=== PATIENT | male | born 1975 | race Caucasian/White ===

== ENCOUNTER 2018-01-20 13:25 | Emergency (ER) | payer MEDICAID ==
[~2018-01-20 13:25] MED LIST: SULFAMETHOX/TMP 800/160 MG 1 TAB PO SCH
[2018-01-20] MEDS ORDERED: SULFAMETHOX/TMP 800/160 MG 1 TAB PO ONE (14:59)
--- NOTE | 2018-01-20 15:02 | EDPHY ---
H & P Stated Complaint: back pain, R arm wound Time Seen by Provider: 01/20/18 14:45 HPI/ROS: Chief complaint: Bug bites History of present illness: This is a 42-year-old male who is currently homeless who presents to the emergency department concerned he has bug bites. He actually has some of the bugs in a container with him. They do appear to be body lice. He reports multiple bites over his entire body. He is most concerned however for his right arm and one of the bites has become very red, swollen and painful. Denies fevers or other associated signs or symptoms. - Personal History Current Tetanus/Diphtheria Vaccine: Unsure Current Tetanus Diphtheria and Acellular Pertussis (TDAP): Unsure - Medical/Surgical History Hx Asthma: No Hx Chronic Respiratory Disease: No Hx Diabetes: No Hx Cardiac Disease: No Hx Renal Disease: No Hx Cirrhosis: No Hx Alcoholism: No Hx HIV/AIDS: No Hx Splenectomy or Spleen Trauma: No Other PMH: MRSA - Social History Smoking Status: Heavy smoker - Physical Exam Exam: General Appearance: Alert, nontoxic. Eyes: Pupils equal and round no injection. Respiratory: Chest is non tender, lungs are clear to auscultation. Cardiac: regular rate and rhythm Gastrointestinal: Abdomen is soft and non tender, no masses, bowel sounds normal. Musculoskeletal: Neck is supple and non tender. Extremities have full range of motion and are non tender. Skin: Multiple bites to the body in a generalized distribution. There is an area of erythema and edema to the right forearm consistent with a cellulitis. No red streaking. No induration or fluctuance to suggest abscess formation at this time. Constitutional: Initial Vital Signs Temperature (C) 36.3 C 01/20/18 13:33 Heart Rate 93 01/20/18 13:33 Respiratory Rate 20 01/20/18 13:33 Blood Pressure 118/103 H 01/20/18 13:33 O2 Sat (%) 97 01/20/18 13:33 O2 Delivery Mode Room Air Allergies/Adverse Reactions: No Known Allergies Allergy (Unverified 01/20/18 13:32) Home Medications: Medication Instructions Recorded Permethrin 5% [Elimite 5%] 60 romeo TP ONCE #1 cream 01/20/18 Sulfamethox/Tmp 800/160 mg 1 tab PO BID #14 tab 01/20/18 [Bactrim Ds] Medical Decision Making ED Course/Re-evaluation: Patient seen under the supervision of my secondary supervising physician Dr. Sumeet John. Patient presents to the emergency department with bug bites. He does appear to have body lice. It does appear 1 of the bites his become infected. I have discussed the importance of finding a place to shower and clean his clothes such as the [facility]. I will provide him with a prescription for permethrin to treat the body lice. I have started him on Bactrim for the skin infection and have given a full course to take with him to ensure he can treat this. Return precautions are discussed with him. Differential Diagnosis: Included but not limited to multiple parasitic infections, secondary infections including cellulitis - Data Points Medications Given: Discontinued Medications Trimethoprim/Sulfamethoxazole (Bactrim Ds) 2 ea PO EDNOW ONE PRN Reason: Protocol Stop: 01/20/18 15:00 Last Admin: 01/20/18 15:08 Dose: 2 ea Departure - Departure Disposition: Home, Routine, Self-Care Clinical Impression: Lice Cellulitis Qualifiers: Site of cellulitis: extremity Site of cellulitis of extremity: upper extremity Laterality: right Qualified Code(s): L03.113 - Cellulitis of right upper limb Condition: Good Instructions: Cellulitis (ED), Body Lice (ED) Additional Instructions: Follow-up with a primary care doctor this week for recheck Take antibiotics as prescribed until finished even feeling better Apply the permethrin cream to your body, head to toe and eave on for least 8 hours Wash all clothing and linens thoroughly If symptoms worsen or new symptoms develop return to the emergency room for recheck Referrals: NONE *PRIMARY CARE P,. [Primary Care Provider] - As per Instructions [facility],. [Clinic] - As per Instructions Prescriptions: Permethrin 5% [Elimite 5%] 60 romeo TP ONCE #1 cream Sulfamethox/Tmp 800/160 mg [Bactrim Ds] 1 tab PO BID #14 tab
[2018-01-20 16:14] VITALS: BP 128/99
--- NOTE | 2018-01-20 18:01 | ASMTCMCOM ---
CM Note CM Note Notes: Pt presented to the ED through triage for bug bites/wounds and back pain. Pt is homeless and states he has been staying in an abandoned house. Pt states he has been set up w/housing in [place] but not until next week. Pt states he completed [employer] and was referred to [facility] but they won't let him stay there any longer due to him missing curfew one night. Pt provided a reserved bed at the [facility] for only 1 night so he can shower, do his laundry,etc. Pt provided a new pair of jeans, belt, socks, and shirt. Pt provided his antibiotic Rxn via [facility], but not the permethrin cream due to its high cost. Pt recommended to try to get to a pharmacy before they close in order to fill the permethrin lotion via his Medicaid. Pt provided addresses and contact info for pharmacies at [facility] and [facility] at [facility]; both options close by 6pm. Pt states he has a bike and despite his acute back pain/strain, he states he will be able to get to the pharmacy in time and then catch the free bus to [facility]. Pt provided info on [facility] and their Walk-Up hours. Pt aware that PC will have an RN at [facility] tomorrow morning. Pt provided other various homelessness resources. Pt pleasant and appreciative. CM available for further assistance if needed. Date Signed: 01/20/2018 06:00 PM Electronically Signed By:Carmen Canada RN
== END 2018-01-20 16:55 | disposition home or self-care (01) ==
DX: L03.113 Cellulitis of right upper limb (principal); B85.1 Pediculosis due to Pediculus humanus corporis; Z59.0 Homelessness